=== PATIENT | female | born 1980 | race Caucasian/White ===

== ENCOUNTER 2017-02-18 17:09 | Emergency (ER) | payer OTHER ==
[2017-02-18 17:14] VITALS: RESP 18
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
[2017-02-18 17:51] VITALS: O2SAT 99
[2017-02-18] MEDS ORDERED: IOPAMIDOL (ISOVUE-300) 100 ML BTL ONE (18:04)
[2017-02-18 20:20] VITALS: BP 122/72; PULSE 80; TEMP 99
== END 2017-02-18 20:26 | disposition home or self-care (01) ==
LOC: EDUNIT#
DX: S20.211A Contusion of right front wall of thorax, initial encounter (principal); V49.40XA Driver injured in collision with unspecified motor vehicles in traffic accident, initial encounter; Y92.410 Unspecified street and highway as the place of occurrence of the external cause; Y99.8 Other external cause status; Y93.89 Activity, other specified
CPT/HCPCS: 82947-QW; Q9967